=== PATIENT | female | born 1950 | race Caucasian/White ===

== ENCOUNTER → 2018-10-16 | Outpatient (CLI) | payer MEDICARE ==
[~2018-10-16] MED LIST: GADOBENATE 529MG/1ML 10ML VIAL IVP ONE; LATA2.5D5 OP; PREMPRO
--- NOTE | 2018-10-16 13:04 | RADIOLOGY IMAGING REPORT ---
FACILITY: [facility] PATIENT NAME: Raquel Estrada : 1950 MR: [id number] V: [id number] EXAM DATE: ORDERING PHYSICIAN: ANTONI NICHOLAS TECHNOLOGIST: Location: Patient: Raquel Estrada : 1950 Visit/Account:[id number] Date of Sevice: 10/16/2018 Examination: MR brain without and with contrast History: Vertigo Comparison: None Technique: Multiplane MR imaging was performed through the brain without and with contrast. 10 cc IV multihance was administered. Findings: Diffusion: None Ventricles: Normal Midline shift: None Extraxial fluid: None Midline craniocervical structures: Degenerative pannus posterior to the dens. Parenchyma: Greater than 15 scattered punctate to small white matter high signal foci. Enhancement: No pathologic enhancement Vascular flow voids: Normal Orbits and paranasal sinuses: Bilateral cataract postsurgical change. Other: No significant additional finding. Impression: 1. No acute intracranial abnormality. 2. No abnormality seen to explain the vertigo. 3. Multiple nonspecific small white matter high signal foci in keeping with mild to moderate chronic small vessel ischemic change or residua of prior inflammation. These do not have the characteristic d istribution often seen with MS which is felt unlikely. Report Dictated By: Jose Reeves MD at 10/16/2018 12:56 PM Report E-Signed By: Jose Reeves MD at 10/16/2018 1:00 PM WSN:[id number]
== END ==
LOC: MRI 01:08
PROVIDERS: ATTEND Family Medicine
DX: R90.82 White matter disease, unspecified (principal)
CPT/HCPCS: 70553; A9577

== ENCOUNTER 2018-10-29 00:54 | Day surgery (SDC) | payer MEDICARE ==
[~2018-10-29] VITALS: Ht 157.5 cm; Wt 51.3 kg
[~2018-10-29 00:54] MED LIST changes: +BIMA2.5D5 OP; -GADOBENATE 529MG/1ML 10ML VIAL IVP ONE
[2018-10-29] MEDS ORDERED: PROPOFOL EMUL(*) 10MG/ML 20 ML 20 ML ONE ×2 (07:17→11:45)
[2018-10-29 09:24] VITALS: BP 111/70
[2018-10-29 11:57] VITALS: BP 112/69
--- NOTE | 2018-10-29 12:03 | NUR ---
1157 PT ARRIVED TO SD VIA CART IN L LATERAL POSITION, VSS, SATTING 100% ON 2L NC, BLOSSOM, AT BEDSIDE
[2018-10-29] MEDS ORDERED: NORMOSOL R SOLN(*) 1000 ML BAG 1,000 ML IV PRN (12:30)
[2018-10-29] MEDS ORDERED: LIDOCAINE/SOD BICARB 8.4% SYR ID ONE (12:30)
[2018-10-29 12:56] VITALS: BP 105/59
[2018-10-29 13:01] VITALS: BP_SYST 113; BP_SYST 96; BP_DIAS 64; BP_DIAS 76
--- NOTE | 2018-10-29 13:14 | NUR ---
1210 DR. NICHOLAS AT BEDSIDE TO DISCUSS FINDINGS WITH , PT RESTING 1220 PT AWAKE, TOLERATING WATER, ROLLED TO BACK IN HIGH FOWLERS, ON ROOM AIR SATTING WELL, D/C IV FROM TUBING, ALL INFUSED 1245 SBAR TO Shantell UMANZOR, RN
== END 2018-10-29 13:15 | disposition home or self-care (01) ==
LOC: OR 00:54
PROVIDERS: ATTEND Family Medicine
DX: Z12.11 Encounter for screening for malignant neoplasm of colon (principal); Z80.0 Family history of malignant neoplasm of digestive organs
CPT/HCPCS: 00812; G0121; J2704